=== PATIENT | female | born 1990 | race Caucasian/White ===

== ENCOUNTER 2023-08-25 15:40 | Emergency (ER) | payer SELFPAY ==
[2023-08-25 15:43] VITALS: BP 148/95
[2023-08-25 16:24] LABS: COVID-19 Antigen Negative (Negative)
--- NOTE | 2023-08-25 16:45 | ED.GENMED ---
History of Present Illness
General
Chief Complaint: Cold/Flu/URI Symptoms
Source: patient
Time Seen by Provider: 08/25/23 16:42
Travel History
Have you had any contact with someone who has COVID-19?: No
Do you have any symptoms of coronavirus? Fever > 100 degrees, chills, cough, shortness of breath, sore throat, loss of taste or smell, muscle aches, or headache?: Yes
Symptoms:: cough
History of Present Illness
History of Present Illness:
33-year-old female presenting to the emergency department for evaluation of bodyaches, sore throat, cough, congestion and headache since this past Tuesday, continued symptoms prompting her to come to the ER today. No known sick contacts, recent
travel or recent antibiotics. Patient has no other concerns at this time.
Past History
Past History
ED Past Medical History: None
ED Past Surgical History: None
Social History
Tobacco: Non-smoker
Alcohol: None
Drug: None
Personal:
Living: with family
Employment: Employed
Review of Systems
Review of Systems
All Other Systems: ROS reviewed and negative except as documented in HPI and ROS
Phy Exam
Physical Exam
Physical Exam:
GENERAL: Alert , in no apparent distress
EYE: conjunctiva clear
Head: Normocephalic atraumatic
NECK: Supple,
ENT: mmm.
LUNGS: no acute respiratory distress
NEUROLOGICAL: Alert and oriented
SKIN: Warm and dry, skin intact.
MUSCULOSKELETAL: well perfused.
PSYCH: Normal and appropriate interaction.
Scores
Heart Failure Risk
Heart Failure Risk Score: Not Applicable
Heart Score for Chest Pain Patients
STEMI patient?: Not applicable
Withdrawal Assessment of Alcohol
Withdrawal Assessment Completed?: Not applicable
Course
Orders/Labs/Results
Orders:
Orders
08/25/23 15:52
COVID-19 Antigen Urgent
Source: Nasal Swab
Influenza A+B Rapid Molecular Urgent
ANGELICA Source: Nasal Swab
Specimen Description:
Vital Signs
Initial and Last Documented VS:
Initial Vital Signs
Temp Pulse Resp BP Pulse Ox
98.1 F 108 18 148/95 98
08/25/23 15:43 08/25/23 15:43 08/25/23 15:43 08/25/23 15:43 08/25/23 15:43
Last Documented Vital Signs
Temp Pulse Resp BP Pulse Ox
98.1 F 108 18 148/95 98
08/25/23 15:43 08/25/23 15:43 08/25/23 15:43 08/25/23 15:43 08/25/23 15:43
MDM/Problems Addressed
Differential Diagnosis Includes:
COVID, flu, pneumonia, other viral etiology
MDM/Problems Addressed:
33-year-old female present emergency department with cold-like symptoms x 4 days, afebrile here although mild tachycardia in triage noted. COVID and flu testing were ordered from triage and patient ultimately tested positive for influenza A.
Patient is not a candidate for Tamiflu given duration of time since onset of symptoms. Advised on [id number] measures and symptomatic care. Return precautions discussed and agreed upon. Patient is otherwise stable for discharge.
*Pulse Oximetry
Patient hypoxic: no
*Critical Care Note
Total Time (30-74mins, 75-104mins- exclusive of procedures): Not Applicable
ED Attending Note
-
Portions of this chart may have been created with voice recognition software.� Occasional wrong word or��sound alike� substitutions may have occurred due to the inherent limitations of voice recognition software.
Discharge Plan
Departure
Patient Disposition: Home (Routine Discharge)
Date of Disposition: 08/25/23
Time of Disposition: 16:45
Patient with high blood pressure during this ER visit?: Yes
Discharge Problem:
Influenza A
Instructions: Flu, Adult (DC)
Prescriptions:
No Action
prednisone 10 MG tablet
10 mg PO .TAPER Qty: 45 0RF
Rx Instructions:
Take 50mg daily x3days, 40mg daily x3days,
30mg daily x3days, 20mg daily x3days,
10mg daily x3days
Referrals:
Chi Vasquez MD [Family Provider] -
Stand Alone Forms: Return to Work
Interventions
Interventions:
*Risk Screen - Suicide Last Done: 08/25/23 15:47
*General Assessment Last Done: 08/25/23 15:47
*Neglect/Abuse Screening Last Done: 08/25/23 15:47
*ED COVID-19 Vaccine History Last Done: 08/25/23 15:47
*Nursing Disposition Last Done: 08/25/23 16:51
ED- Pulmonary Assessment Last Done: 08/25/23 16:51
Discharge Date and Time
Discharge Date/Time: 08/25/23 16:52
== END 2023-08-25 16:52 | disposition home or self-care (01) ==
LOC: EMR 15:40
PROVIDERS: EMERGENCY PHYSICIAN Emergency Medicine; FAMILY PHYSICIAN Family Medicine
DX: J10.1 Influenza due to other identified influenza virus with other respiratory manifestations (principal); Z11.52 Encounter for screening for COVID-19
CPT/HCPCS: 99282; 87502; 87811

== ENCOUNTER 2025-03-01 17:29 | Emergency (ER) | payer SELFPAY ==
[2025-03-01 17:30] VITALS: BP 132/92
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
[2025-03-01] MEDS: ADACEL 0.5 ML IM (18:54)
== END 2025-03-01 19:01 | disposition home or self-care (01) ==
LOC: EMR 17:29
PROVIDERS: EMERGENCY PHYSICIAN Emergency Medicine
DX: S50.812A Abrasion of left forearm, initial encounter (principal); S80.11XA Contusion of right lower leg, initial encounter; V89.2XXA Person injured in unspecified motor-vehicle accident, traffic, initial encounter; Z23 Encounter for immunization
CPT/HCPCS: 99282; 90471; 90715

== ENCOUNTER 2025-06-12 18:17 | Emergency (ER) | payer SELFPAY ==
[2025-06-12 18:19] VITALS: BP 132/91
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
[2025-06-12 21:20] LABS: Hematocrit 38.5 % (37.0-47.0); Hemoglobin 13.3 g/dL (12.0-16.0); Mean Corp Hgb Conc. 34.5 g/dL (33.0-37.0); Mean Corpuscular Volume 88.7 fL (81.0-99.0); Nucleated Red Blood Cells % 0 %; Platelet Count 329 10^3/uL (130-400); Red Cell Dist. Width 12.4 % (11.5-14.5)
[2025-06-12 22:09] LABS: HCG, Serum Qualitative Screen Negative
[2025-06-12 22:15] VITALS: BMI 47.3
[2025-06-12 22:19] LABS: ALT (SGPT) 31 U/L (0-35); AST (SGOT) 24 U/L (14-36); Albumin 4.3 g/dl (3.5-5.0); Alkaline Phosphatase 80 U/L (38-126); Blood Urea Nitrogen 7 mg/dl (7-17); Calcium 8.8 mg/dl (8.4-10.2); Carbon Dioxide 23 mmol/L (22-30); Chloride 106 mmol/L (98-107); Estimated Creatinine Clearance > 125 ml/min; Glucose 103 mg/dl (70-99); Potassium 3.9 mmol/L (3.5-5.1); Sodium 135 mmol/L (135-145); Total Protein 7.4 g/dl (6.3-8.2); eGFR > 60.00
[2025-06-12 23:15] VITALS: BP 129/82
== END 2025-06-12 23:45 | disposition home or self-care (01) ==
LOC: EMR 18:17
PROVIDERS: Physician Assistant; EMERGENCY PHYSICIAN Emergency Medicine
DX: S20.211A Contusion of right front wall of thorax, initial encounter (principal); R10.11 Right upper quadrant pain; V43.52XA Car driver injured in collision with other type car in traffic accident, initial encounter
CPT/HCPCS: 99284; 71260; 74177; 80053; 84703; 85025; Q9967